=== PATIENT | male | born 1965 | race Caucasian/White ===

== ENCOUNTER → 2016-04-21 | Outpatient (REF) ==
[~2016-04-21] MED LIST: CEPHALEXIN500 M1 PO
== END ==
LOC: ZLAB.WCH 16:04
DX: Z01.89 Encounter for other specified special examinations (principal)

== ENCOUNTER → 2016-04-28 | Outpatient (REF) | LOC: ZLAB.WCH 14:52 | DX: Z01.89 Encounter for other specified special examinations (principal) ==

== ENCOUNTER → 2016-05-05 | Outpatient (REF) | LOC: ZLAB.WCH 14:58 | DX: Z01.89 Encounter for other specified special examinations (principal) ==

== ENCOUNTER → 2016-05-12 | Outpatient (REF) | LOC: ZLAB.WCH 15:47 | DX: Z01.89 Encounter for other specified special examinations (principal) ==

== ENCOUNTER → 2016-05-19 | Outpatient (REF) | LOC: ZLAB.WCH 16:16 | DX: Z01.89 Encounter for other specified special examinations (principal) ==